=== PATIENT | female | born 1980 | race American Indian/Alaskan Native ===

== ENCOUNTER 2021-02-07 13:53 | Emergency (ER) | payer SELFPAY ==
[2021-02-07 15:38] LABS: Basophils % (Auto) 0.3 % (0.0-1.8); Eosinophils # (Auto) 0.1 K/mm3 (0.0-0.4); Hematocrit 40.3 % (30.3-42.9); Hemoglobin 13.8 gm/dl (10.1-14.3); Lymphocytes # (Auto) 1.8 K/mm3 (1.2-5.4); Lymphocytes % (Auto) 29.3 % (13.4-35.0); Mean Corpuscular HGB Conc 34 % (30-34); Mean Corpuscular Volume 87 fl (79-97); Monocytes # (Auto) 0.3 K/mm3 (0.0-0.8); Monocytes % (Auto) 5.6 % (0.0-7.3); Platelet Count 317 K/mm3 (140-440); Red Blood Count 4.66 M/mm3 (3.65-5.03); Red Cell Distribution Width 13.8 % (13.2-15.2)
[2021-02-07 15:47] LABS: INR 1.08 (0.87-1.13)
[2021-02-07] MEDS ORDERED: LORazepam 1 MG TAB PO ONE (16:04)
[2021-02-07 16:08] LABS: Creatine Kinase MB 1.5 ng/mL (0.0-4.0)
[2021-02-07 16:09] LABS: BUN/Creatinine Ratio 10; Blood Urea Nitrogen 8 mg/dL (7-17); Calcium 9.3 mg/dL (8.4-10.2); Hemolysis Index 29
--- NOTE | 2021-02-07 16:11 | Emergency Department Report ---
ED Chest Pain HPI - General Chief Complaint: Weakness Stated Complaint: ELEVATED BLOOD PRESSURE Time Seen by Provider: 02/07/21 15:22 Source: patient, RN/MD Mode of arrival: Wheelchair Limitations: No Limitations - History of Present Illness Initial Comments: 40-year-old female the past medical history of hypertension and anxiety presents to the hospital with complaints of intermittent chest pain, shortness of breath, and decreased sleeping since her significant other committed suicide 6 days ago. Patient has been having intermittent chest pressure lasted for several hours with out aggravating or alleviating factors. She has also right upper chest wall pain that worsens with postural changes and movement. Pain has been worse since yesterday and typically lasts for hours at a time. Today she had recurrent chest pressure with shortness of breath and diaphoresis and went to [facility] for evaluation assuming her blood pressure was elevated. Patient has not had any hypertensive medication in the past year and has not been monitoring her BP levels. Patient was then sent to the ER for evaluation. Patient denies history of PE/DVT, recent travel, calf tenderness, leg edema, control pill use, smoking history, drug use, or family history of CAD before the age of 65. Patient has a history of anxiety treated with Xanax (which causes oversedation), Ativan, and sertraline in the past. She does not currently have a primary care doctor or psychiatrist. - Related Data Previous Rx's Medication Instructions Recorded Last Taken Type LORazepam [Ativan] 0.5 mg PO BID PRN #10 tab 02/07/21 Unknown Rx hydrOXYzine PAMOATE [Vistaril] 50 mg PO QHS PRN #20 capsule 02/07/21 Unknown Rx Allergies Allergy/AdvReac Type Severity Reaction Status Date / Time No Known Allergies Allergy Verified 02/07/21 14:04 Heart Score - HEART Score History: Slightly suspicious EKG: Normal Age: < 45 Risk factors: 1-2 risk factors Troponin: < normal limit HEART Score: 1 - EKG Read Time Time EKG Completed: 15:09 EKG Read Time: 15:20 ED Review of Systems ROS: Stated complaint: ELEVATED BLOOD PRESSURE Other details as noted in HPI Comment: All other systems reviewed and negative ED Past Medical Hx - Past Medical History Hx Hypertension: Yes - Social History Smoking Status: Never Smoker Substance Use Type: None - Medications Home Medications: Home Medications Medication Instructions Recorded Confirmed Last Taken Type LORazepam [Ativan] 0.5 mg PO BID PRN #10 tab 02/07/21 Unknown Rx hydrOXYzine PAMOATE [Vistaril] 50 mg PO QHS PRN #20 capsule 02/07/21 Unknown Rx ED Physical Exam - General Limitations: No Limitations - Other Other exam information: General: No acute distress Head: Atraumatic Eyes: normal appearance ENT: Moist mucous membranes Neck: Normal appearance, no midline tenderness Chest: Clear to auscultation bilaterally CV: Regular rate and rhythm Abdomen: Soft, normal bowel sounds, nontender, nondistended, no rebound or guarding Back: Normal inspection Extremity: Normal inspection, full range of motion, no calf tenderness or leg edema Neuro: Alert O x 3, no facial asymmetry, speech clear, no gross motor sensory deficit Psych: Appropriate behavior Skin: No rash ED Course Vital Signs 02/07/21 02/07/21 02/07/21 14:07 14:30 15:00 Temperature 98.3 F Pulse Rate 97 H 85 80 Respiratory 15 13 Rate Blood Pressure 132/90 129/96 Blood Pressure 148/92 [Left] O2 Sat by Pulse 100 99 99 Oximetry 02/07/21 02/07/21 02/07/21 15:30 16:00 17:00 Temperature Pulse Rate 90 89 79 Respiratory 20 11 L 13 Rate Blood Pressure 131/91 141/99 140/89 Blood Pressure [Left] O2 Sat by Pulse 100 99 99 Oximetry 02/07/21 17:30 Temperature Pulse Rate 79 Respiratory 15 Rate Blood Pressure 139/94 Blood Pressure [Left] O2 Sat by Pulse 100 Oximetry ULISES score - Ulises Score Age > 65: (0) No Aspirin use within the Past 7 Days: (0) No 3 or more CAD Risk Factors: (0) No 2 or more Angina events in past 24 hrs: (1) Yes Known CAD with more than 50% Stenosis: (0) No Elevated Cardiac Markers: (0) No ST Deviation Greater than 0.5mm: (0) No ULISES Score: 1 ED Medical Decision Making - Lab Data Result diagrams: 02/07/21 15:30 02/07/21 15:30 Lab Results 02/07/21 02/07/21 02/07/21 Range/Units 15:30 15:30 15:30 WBC 6.0 (4.5-11.0) K/mm3 RBC 4.66 (3.65-5.03) M/mm3 Hgb 13.8 (10.1-14.3) gm/dl Hct 40.3 (30.3-42.9) % MCV 87 (79-97) fl MCH 30 (28-32) pg MCHC 34 (30-34) % RDW 13.8 (13.2-15.2) % Plt Count 317 (140-440) K/mm3 Lymph % (Auto) 29.3 (13.4-35.0) % Hart % (Auto) 5.6 (0.0-7.3) % Eos % (Auto) 1.0 (0.0-4.3) % Baso % (Auto) 0.3 (0.0-1.8) % Lymph # (Auto) 1.8 (1.2-5.4) K/mm3 Hart # (Auto) 0.3 (0.0-0.8) K/mm3 Eos # (Auto) 0.1 (0.0-0.4) K/mm3 Baso # (Auto) 0.0 (0.0-0.1) K/mm3 Seg Neutrophils % 63.8 (40.0-70.0) % Seg Neutrophils # 3.9 (1.8-7.7) K/mm3 PT 13.9 (12.2-14.9) Sec. INR 1.08 (0.87-1.13) Sodium 131 L (137-145) mmol/L Potassium 3.6 (3.6-5.0) mmol/L Chloride 96.1 L (98-107) mmol/L Carbon Dioxide 24 (22-30) mmol/L Anion Gap 15 mmol/L BUN 8 (7-17) mg/dL Creatinine 0.8 (0.6-1.2) mg/dL Estimated GFR > 60 ml/min BUN/Creatinine Ratio 10 % Glucose 91 (65-100) mg/dL Calcium 9.3 (8.4-10.2) mg/dL Total Creatine Kinase 116 (30-135) units/L CK-MB (CK-2) 1.5 (0.0-4.0) ng/mL CK-MB (CK-2) Rel Index 1.2 (0-4) Troponin T < 0.010 (0.00-0.029) ng/mL HCG, Qual (Negative) 02/07/21 Range/Units 15:30 WBC (4.5-11.0) K/mm3 RBC (3.65-5.03) M/mm3 Hgb (10.1-14.3) gm/dl Hct (30.3-42.9) % MCV (79-97) fl MCH (28-32) pg MCHC (30-34) % RDW (13.2-15.2) % Plt Count (140-440) K/mm3 Lymph % (Auto) (13.4-35.0) % Hart % (Auto) (0.0-7.3) % Eos % (Auto) (0.0-4.3) % Baso % (Auto) (0.0-1.8) % Lymph # (Auto) (1.2-5.4) K/mm3 Hart # (Auto) (0.0-0.8) K/mm3 Eos # (Auto) (0.0-0.4) K/mm3 Baso # (Auto) (0.0-0.1) K/mm3 Seg Neutrophils % (40.0-70.0) % Seg Neutrophils # (1.8-7.7) K/mm3 PT (12.2-14.9) Sec. INR (0.87-1.13) Sodium (137-145) mmol/L Potassium (3.6-5.0) mmol/L Chloride (98-107) mmol/L Carbon Dioxide (22-30) mmol/L Anion Gap mmol/L BUN (7-17) mg/dL Creatinine (0.6-1.2) mg/dL Estimated GFR ml/min BUN/Creatinine Ratio % Glucose (65-100) mg/dL Calcium (8.4-10.2) mg/dL Total Creatine Kinase (30-135) units/L CK-MB (CK-2) (0.0-4.0) ng/mL CK-MB (CK-2) Rel Index (0-4) Troponin T (0.00-0.029) ng/mL HCG, Qual Negative (Negative) - EKG Data -: EKG Interpreted by [facility] EKG shows normal: sinus rhythm, ST-T waves (no stemi) Rate: normal - Radiology Data Radiology results: report reviewed CHEST 1 VIEW 02/07/2021 4:39 PM INDICATION / CLINICAL INFORMATION: cp, sob. COMPARISON: None available. FINDINGS: SUPPORT DEVICES: None. HEART / MEDIASTINUM: No significant abnormality. LUNGS / PLEURA: No significant pulmonary or pleural abnormality. No pneumothorax. ADDITIONAL FINDINGS: No significant additional findings. IMPRESSION: 1. No acute findings. - Medical Decision Making pt feels better after ativan 0.5mg. Bp also improved and in normal range. I suspect grief/anxiety reaction. The patient has a history of hypertension I'm hesitant to initiate BP medication at this time given that symptoms and BP improved with anxiety treatment and patient does not know her baseline blood pressure since she has been off medication for about a year. ED work-up unremarkable. Patient does not have any PE or DVT risk factors. Patient also has a heart score of one, normal EKG, and negative troponin. Patient be discharged home with Ativan and Vistaril as needed and outpatient follow-up with PMD and psychiatrist recommended Critical Care Time: No Critical care attestation.: If time is entered above; I have spent that time in minutes in the direct care of this critically ill patient, excluding procedure time. ED Disposition Clinical Impression: Anxiety, Grief reaction, Atypical chest pain, History of hypertension Disposition: DC-01 TO HOME OR SELFCARE Is pt being admited?: No Does the pt Need Aspirin: No Condition: Stable Instructions: Nonspecific Chest Pain, Adult, Managing Loss, Adult, Hypertension, Adult, [id number], Managing Anxiety, Adult Additional Instructions: Take the medication as prescribed. Follow-up with your doctor or doctor/clinic provided. Return if symptoms worsen as indicated by your discharge instructions. Continue to monitor your blood pressure and follow-up with a primary care doctor. If blood pressure remains elevated you may need to initiate blood pressure medication Professional and Agency Contacts To help [facility] (02/06) [place] Crisis Line: Suicide Prevention Line: Crisis Text Line: Text ``START to 886823 Emergency: 911 Outpatient COMMUNITY Behavioral Health Resources: [facility]OL[facility]: [facility] [address] [place] [id number] [facility] [address] [place] [address] Friday thru Friday - 8am - 5pm Call to schedule an assessment for mental health and substance abuse programs [facility] Address: [address] [place] [address] Friday thru Friday- 7am-2pm [facility] Address: [address] [place] [address] Friday thrfriday: 8:30AM-5PM Prescriptions: LORazepam [Ativan] 0.5 mg PO BID PRN #10 tab PRN Reason: Anxiety hydrOXYzine PAMOATE [Vistaril] 50 mg PO QHS PRN #20 capsule PRN Reason: Insomnia Referrals: PRIMARY CARE, [Primary Care Provider] - 3-5 Days YONATAN PEREZ MD [Staff Physician] - 3-5 Days Time of Disposition: 17:46
--- NOTE | 2021-02-07 17:17 | XRay Report ---
CHEST 1 VIEW 02/07/2021 4:39 PM INDICATION / CLINICAL INFORMATION: cp, sob. COMPARISON: None available. FINDINGS: SUPPORT DEVICES: None. HEART / MEDIASTINUM: No significant abnormality. LUNGS / PLEURA: No significant pulmonary or pleural abnormality. No pneumothorax. ADDITIONAL FINDINGS: No significant additional findings. IMPRESSION: 1. No acute findings. Signer Name: Getachew Johnson MD Signed: 02/07/2021 5:12 PM Workstation Name: [id number]
[2021-02-07 17:43] VITALS: BP 139/94
--- NOTE | 2021-02-09 10:41 | Electrocardiograph Report ---
[facility] Test Date: 2021-02-07 Test Time: 15:09:14 Pat Name: JAYESH FISHER Department: Room: Gender: F Geological Engineer: TV : 1980 Requested By: VLADIMIR DUARTE Order Number: [id number] Reading MD: Christiane Lam Measurements Intervals [place] Rate: 87 P: 59 DC: 147 QRS: 49 QRSD: 86 T: 32 QT: 338 QTc: 406 Interpretive Statements Sinus rhythm No previous ECG available for comparison Electronically Signed On 02-09-2021 10:40:50 EDT by Christiane Lam
== END 2021-02-07 18:30 | disposition home or self-care (01) ==
LOC: ED 13:53
DX: I10 Essential (primary) hypertension (principal); F43.21 Adjustment disorder with depressed mood; F41.9 Anxiety disorder, unspecified; R07.89 Other chest pain; Z79.899 Other long term (current) drug therapy
CPT/HCPCS: 36415; 71045; 80048; 82550; 82553; 84484; 84703; 85025; 85610; 93005

== ENCOUNTER 2021-05-23 13:15 | Outpatient (CLI) | payer BC ==
[2021-05-23 13:57] LABS: Basophils % (Auto) 0.2 % (0.0-1.8); Eosinophils # (Auto) 0.1 K/mm3 (0.0-0.4); Hemoglobin 12.8 gm/dl (10.1-14.3); Lymphocytes # (Auto) 2.1 K/mm3 (1.2-5.4); Lymphocytes % (Auto) 41.5 % (13.4-35.0); Mean Corpuscular HGB Conc 34 % (30-34); Mean Corpuscular Volume 88 fl (79-97); Monocytes # (Auto) 0.2 K/mm3 (0.0-0.8); Monocytes % (Auto) 4.6 % (0.0-7.3); Platelet Count 301 K/mm3 (140-440); Red Blood Count 4.35 M/mm3 (3.65-5.03); Red Cell Distribution Width 14.6 % (13.2-15.2)
[2021-05-23 16:54] LABS: Alanine Aminotransferase 11 units/L (7-56); Albumin 4.2 g/dL (3.9-5); Blood Urea Nitrogen 6 mg/dL (7-17); Calcium 9.5 mg/dL (8.4-10.2); Chol/HDL Ratio 2.62 %; HDL Cholesterol 56 mg/dL (40-59); Hemolysis Index 9; LDL Cholesterol,Direct 87 mg/dL (50-130)
[2021-05-23 17:03] LABS: BUN/Creatinine Ratio 9
[2021-05-27 09:09] LABS: Vitamin D, 25-OH, D2 <4 ng/mL
== END 2021-05-23 13:16 | disposition home or self-care (01) ==
LOC: LAB 13:15
PROVIDERS: ATTEND Internal Medicine
DX: Z13.220 Encounter for screening for lipoid disorders (principal); Z13.29 Encounter for screening for other suspected endocrine disorder; Z13.1 Encounter for screening for diabetes mellitus; Z00.00 Encounter for general adult medical examination without abnormal findings; E55.9 Vitamin D deficiency, unspecified; Z13.21 Encounter for screening for nutritional disorder
CPT/HCPCS: 36415; 80053; 80061; 82306; 82607; 83036; 84443; 85025